=== PATIENT | male | born 1950 | race Caucasian/White ===

== ENCOUNTER 2016-12-25 09:12 | Emergency (ER) | payer BC, OTHER ==
[~2016-12-25] VITALS: Ht 172.7 cm; Wt 83.9 kg
[~2016-12-25 09:12] MED LIST: ASPI1TAB6 PO; ATOR1TAB19 PO; LEVO25TA5 PO; LISI-538 PO; METF500T PO; NITR0.4D6 SL; PROT1TAB2 PO; SUCR1TA PO; TORS20TA2 PO
[2016-12-25] MEDS ORDERED: VITA200016 PO (09:45)
[2016-12-25] MEDS ORDERED: FLAG500T PO (09:51)
[2016-12-25] MEDS ORDERED: CIPR500T19 PO (09:51)
[2016-12-25 10:35] LABS: BASO % 0.3 % (0.0-1.0); EOS % 0.4 % (0.0-3.0); LARGE UNSTAINED CELL # 0.1 K/mm3 (0.0-0.4); LYMPH # 0.7 K/mm3 (1.5-4.5); LYMPH % 5.1 % (24.0-44.0); MEAN CORPUSCULAR HEMOGLOBIN 31.9 pg (27.0-33.0); MEAN CORPUSCULAR HGB CONC 35.9 g/dl (32.0-36.5); MEAN CORPUSCULAR VOLUME 88.7 fl (80.0-96.0); MONO % 8.6 % (0.0-5.0); NEUTROPHILS # 9.4 K/mm3 (1.8-7.7); NEUTROPHILS % 84.6 % (36.0-66.0); PLATELET COUNT, AUTOMATED 264 k/mm3 (150-450); RED CELL DISTRIBUTION WIDTH 12.5 % (11.5-14.5); WHITE BLOOD COUNT 11.1 K/mm3 (4.0-10.0)
[2016-12-25 10:43] LABS: CALCIUM LEVEL 8.6 MG/DL (8.8-10.2); CREATININE FOR GFR 1.68 MG/DL (0.70-1.30); FREE T4 1.5 NG/DL (0.76-1.46); POTASSIUM SERUM 3.6 MEQ/L (3.5-5.1)
--- NOTE | 2016-12-25 10:55 | REP ---
CT Head without contrast HISTORY: Syncope COMPARISON: 12/28/2006 Areas of decreased attenuation are present in the periventricular white matter. This represents small-vessel ischemic disease. There is no intraparenchymal hemorrhage, acute infarct, mass or midline shift. The ventricular system is normal in appearance. There is no extra cerebral collection. There is no fracture. The visualized sinuses are clear. IMPRESSION: Small vessel ischemic disease. Signed by Ej Crespo MD 12/25/2016 10:47 A
[2016-12-25] MEDS ORDERED: NS 500 ML IV ONE (11:15)
[2016-12-25] MEDS ORDERED: GASTROGRAFIN SOLUTION 30ML (Q9963) As Ordered ONE (11:18)
[2016-12-25] MEDS ORDERED: GASTROGRAFIN SOLUTION 30ML (Q9963) PO ONE ×2 (11:20→11:50)
--- NOTE | 2016-12-25 12:38 | REP ---
CT CERVICAL SPINE WITHOUT CONTRAST: HISTORY: Syncope. There is no acute fracture or subluxation. A disc bulge is present at the C3-4 level. Disc bulges with associated osteophyte formation are present at the C5-6 and C6-7 levels. There is minimal to mild narrowing of the spinal canal. Uncinate process and/or facet hypertrophy are present at the C2-3 through C6-7 levels. These findings produce minimal to moderate narrowing of the neural foramina. There is fusion of the C5 through C7 vertebral bodies. The C3-4, C4-5 and C7-T1 intervertebral discs are decreased in height consistent with disc degeneration. There is loss of the normal lordotic curve. IMPRESSION: 1. There is no acute fracture or subluxation. 2. There is cervical spondylosis at the C2-3 through C7-T1 levels. Signed by Ej Crespo MD 12/25/2016 12:57 P
--- NOTE | 2016-12-25 13:18 | REP ---
CT ABDOMEN AND PELVIS WITHOUT CONTRAST: CT abdomen and pelvis performed without IV contrast but with oral contrast. Sagittal and coronal reconstruction images are performed. The visualized lung bases demonstrate no infiltrate. The liver, gallbladder, spleen, adrenals, pancreas and kidneys are grossly unremarkable in appearance. There is no renal, ureteral or bladder calculus. There is no hydroureteronephrosis. There are mild atherosclerotic calcifications of the abdominal aorta without aneurysm. There is no adenopathy. There is no free air or free fluid. There is no bowel wall thickening. There is no evidence of bowel obstruction. No pelvic mass is seen. IMPRESSION: Essentially negative CT abdomen and pelvis without IV but with oral contrast. Signed by Shan Du MD 12/25/2016 03:55 P
[2016-12-25] MEDS ORDERED: LOMO2.5T PO ×3 (16:48→16:59)
[2016-12-25 17:20] VITALS: BP 120/66
--- NOTE | 2016-12-27 12:08 | ECGEPIP ---
Stationary ECG Study [facility] - ED Test Date: 2016-12-25 Pat Name: GLORY CHACON Department: Room: - Gender: M Chairman: mecca : 1950 Requested By: James Porter Order Number: [id number] Reading MD: Trisha Lehman Measurements Intervals [place] Rate: 73 P: 34 [place]: 179 QRS: 4 QRSD: 101 T: 10 QT: 398 QTc: 440 Interpretive Statements SINUS RHYTHM ?PRIOR INFERIOR INFARCT NSTTW ABNORMALITY Electronically Signed On 12-27-2016 12:08:01 EST by Trisha Lehman
== END 2016-12-25 17:32 | disposition home or self-care (01) ==
LOC: M ED 10:35
DX: R55 Syncope and collapse (principal); A09 Infectious gastroenteritis and colitis, unspecified; I25.10 Atherosclerotic heart disease of native coronary artery without angina pectoris; I10 Essential (primary) hypertension; N39.3 Stress incontinence (female) (male); I20.9 Angina pectoris, unspecified; E78.00 Pure hypercholesterolemia, unspecified; E03.9 Hypothyroidism, unspecified; Z87.442 Personal history of urinary calculi; Z85.46 Personal history of malignant neoplasm of prostate
CPT/HCPCS: 36415; 70450; 72125; 74176; 80048; 84439; 84443; 85025; 87507; 93005; 93041; 94760; 99285; Q9963

== ENCOUNTER 2016-12-27 22:42 | Emergency (ER) | payer BC, OTHER ==
[~2016-12-27] VITALS: Ht 172.7 cm; Wt 83.9 kg
[~2016-12-27 22:42] MED LIST changes: +CIPR500T19 PO; +FLAG500T PO; +LOMO2.5T PO; +VITA200016 PO
[2016-12-28] MEDS ORDERED: ALBUTEROL SULFATE 2.5 MG/0.5 ML INH NEB SOLN NEB ONE (00:15)
[2016-12-28] MEDS ORDERED: [UNRECOGNIZED DRUG - CODE] PO (01:24)
[2016-12-28] MEDS ORDERED: guaiFENesin/CODEINE SYRUP 5 ML UDC PO ONE (01:30)
[2016-12-28 01:45] VITALS: BP 115/66
--- NOTE | 2016-12-28 10:26 | REP ---
CHEST, TWO VIEWS: Two views of the chest are performed. Comparison 11/27/2011. There is minor bibasilar interstitial fibrosis without evidence of acute infiltrate. Heart is normal in size. There is mild calcification of the thoracic aorta. Mediastinal silhouette is unchanged. The visualized osseous structures are intact. IMPRESSION: No acute pulmonary disease. Signed by Shan Du MD 12/28/2016 01:56 P
== END 2016-12-28 02:04 | disposition home or self-care (01) ==
LOC: M ED 23:46
DX: J06.9 Acute upper respiratory infection, unspecified (principal); N40.0 Benign prostatic hyperplasia without lower urinary tract symptoms; Z87.442 Personal history of urinary calculi; Z79.899 Other long term (current) drug therapy; Z85.46 Personal history of malignant neoplasm of prostate; E11.9 Type 2 diabetes mellitus without complications; E03.9 Hypothyroidism, unspecified; M54.9 Dorsalgia, unspecified

== ENCOUNTER 2017-07-15 12:20 | Outpatient (CLI) | payer BC, OTHER ==
[~2017-07-15] VITALS: Ht 172.7 cm; Wt 86.2 kg
[~2017-07-15 12:20] MED LIST changes: +ASPI1TAB PO; +GLIP1TAB49 PO; +LIDOCAINE 2% INJ 100 MG/5 ML SDV (FOR ANES.) As Ordered ONE; -METF500T PO; +METF500T13 PO; +OMEG12002 PO; +PROPOFOL 200 MG/20 ML VIAL As Ordered ONE; +VITATAB11 PO; +[UNRECOGNIZED DRUG - CODE] PO
[2017-07-15] MEDS ORDERED: NS 1,000 ML IV SCH (12:30)
--- NOTE | 2017-07-15 13:26 | ROOR ---
Patient Name: Afshin Gaines Procedure Date: 07/15/2017 1:01 PM Date of : 1950 Age: 66 Room: [facility] Gender: Male Note Status: Finalized Procedure: Total Colonoscopy to Cecum Indications: Screening for colorectal malignant neoplasm, Last colonoscopy: 2002 Providers: Timmy Haile MD Referring MD: LINDA WASHBURN MD Requesting Provider: Medicines: Monitored Anesthesia Care Complications: No immediate complications. Procedure: Pre-Anesthesia Assessment: - The heart rate, respiratory rate, oxygen saturations, blood pressure, adequacy of pulmonary ventilation, and response to care were monitored throughout the procedure. The Colonoscope was introduced through the anus and advanced to the cecum, identified by appendiceal orifice and ileocecal valve. The colonoscopy was performed without difficulty. The patient tolerated the procedure well. The quality of the bowel preparation was excellent. Findings: The perianal and digital rectal examinations were normal. Non-bleeding internal hemorrhoids were found during retroflexion. The hemorrhoids were small and Grade I (internal hemorrhoids that do not prolapse). No other significant abnormalities were identified in a careful examination of the remainder of the colon. The exam was otherwise without abnormality on direct and retroflexion views. Impression: - Non-bleeding internal hemorrhoids. - The examination was otherwise normal on direct and retroflexion views. - No specimens collected. - The exam was otherwise normal to the cecum. Recommendation: - Patient has a contact number available for emergencies. The signs and symptoms of potential delayed complications were discussed with the patient. Return to normal activities tomorrow. Written discharge instructions were provided to the patient. - High fiber diet. - Discharge patient to home. - Continue present medications. - Repeat colonoscopy in 10 years for screening purposes. - Return to referring physician. - The findings and recommendations were discussed with the patient's family. Timmy Haile MD Timmy Haile MD 07/15/2017 1:20:21 PM This report has been signed electronically. Number of Addenda: 0 Note Initiated On: 07/15/2017 1:01 PM Estimated Blood Loss: Estimated blood loss: none.
[2017-07-15 13:48] VITALS: BP 127/73
== END 2017-07-15 13:50 | disposition home or self-care (01) ==
LOC: M OPP 12:20
PROVIDERS: ATTEND Internal Medicine Gastroenterology
DX: Z12.11 Encounter for screening for malignant neoplasm of colon (principal); K64.0 First degree hemorrhoids; I10 Essential (primary) hypertension; E78.5 Hyperlipidemia, unspecified; R00.8 Other abnormalities of heart beat; E11.9 Type 2 diabetes mellitus without complications; E03.9 Hypothyroidism, unspecified; G47.30 Sleep apnea, unspecified; R06.83 Snoring; Z87.442 Personal history of urinary calculi; Z85.46 Personal history of malignant neoplasm of prostate; Z79.82 Long term (current) use of aspirin; Z79.899 Other long term (current) drug therapy; Z79.84 Long term (current) use of oral hypoglycemic drugs; Z80.42 Family history of malignant neoplasm of prostate; Z80.3 Family history of malignant neoplasm of breast

== ENCOUNTER → 2017-08-06 | Outpatient (CLI) | payer BC, OTHER ==
[~2017-08-06] MED LIST changes: -LIDOCAINE 2% INJ 100 MG/5 ML SDV (FOR ANES.) As Ordered ONE; -PROPOFOL 200 MG/20 ML VIAL As Ordered ONE
--- NOTE | 2017-08-11 18:58 | SLEEPHOME ---
DATE OF STUDY: 08/06/2017 ORDERED BY: Korina Echavarria NP Diagnostic home sleep testing was performed due to concern for the obstructive sleep apnea syndrome in this patient with a history of excessive somnolence and nonrestorative sleep, compounded by comorbidities of hypothyroidism, diabetes and hypertension. For testing, a NOX-T3 respiratory monitoring device was used. Continuous record was made of pulse, oxygen saturation, air flow, chest and abdominal strain, and body position. 9 hours and 59 minutes of data were reviewed. There were 8 hours and 47 minutes marked as time in bed. During the interval marked time in bed, there were 116 respiratory events identified of 10 seconds in duration or greater for a respiratory event index of 13.2. The events were primarily obstructive. Baseline pulse rate 66 beats per minute. Pulse rate ranged 51 to 98. Baseline saturation 93%. Saturations were seen as low as 79% surrounding respiratory events. Testing was performed in both the supine and non-supine positions. IMPRESSION: Abnormal home sleep testing with repetitive respiratory events and oxygen desaturation to 79%, with a respiratory event index of 13.2, is consistent with the obstructive sleep apnea syndrome. RECOMMENDATION: The patient should be encouraged to return to the sleep disorder center for pressure therapy titration.
== END ==
LOC: M SLEEP HO 11:42
PROVIDERS: ATTEND Nurse Practitioner Adult Health
DX: G47.30 Sleep apnea, unspecified (principal)

== ENCOUNTER → 2017-11-25 | Outpatient (CLI) | payer MEDICARE, BC, OTHER | LOC: M SLEEP 19:38 | DX: G47.33 Obstructive sleep apnea (adult) (pediatric) (principal) | CPT/HCPCS: 95811 ==

== ENCOUNTER → 2018-01-26 | Outpatient (REF) | payer BC, MEDICARE, OTHER ==
[2018-01-26 11:21] LABS: VITAMIN B12 LEVEL 1011 PG/ML
[2018-01-26 11:22] LABS: FOLATE > 24.0 NG/ML
[2018-01-26 11:26] LABS: FREE T4 1.09 NG/DL (0.76-1.46); TOTAL PROTEIN 7.4 GM/DL (6.4-8.2)
[2018-01-26 11:28] LABS: ERYTHROCYTE SEDIMENTATION RATE 9 mm/hr (0-20)
[2018-01-26 11:36] LABS: ESTIMATED AVERAGE GLUCOSE 160 MG/DL (60-110); HEMOGLOBIN A1c 7.2 %
[2018-01-26 11:37] LABS: DRVV SCREEN 41.3 SEC
[2018-01-27 11:04] LABS: ALBUMIN 4.23 GM/DL (3.29-5.55); ALBUMIN % 57.1 % (55.8-66.1); ALPHA-1-GLOBULIN % 3.5 % (2.9-4.9); ALPHA-1-GLOBULINS 0.26 GM/DL (0.17-0.41); ALPHA-2-GLOBULINS 0.67 GM/DL (0.42-0.99); BETA-1-GLOBULINS 0.49 GM/DL (0.28-0.60); BETA-1-GLOBULINS % 6.6 % (4.7-7.2); BETA-2-GLOBULINS 0.47 GM/DL (0.19-0.55); BETA-2-GLOBULINS % 6.4 % (3.2-6.5); GAMMA GLOBULIN % 17.4 % (11.1-18.8); GAMMA GLOBULINS 1.29 GM/DL (0.65-1.58)
[2018-01-27 14:13] LABS: ANTINUCLEAR ANTIBODIES DIRECT Negative (Negative)
[2018-02-01 00:06] LABS: VITAMIN B1 LEVEL WHOLE BLOOD 184.7 nmol/L (66.5-200.0)
[2018-02-01 00:06] LABS: VITAMIN B6,PYRIDOXAL PHOSPHATE 9.6 ug/L (5.3-46.7)
== END ==
LOC: M LABNEURO 09:57
DX: G62.9 Polyneuropathy, unspecified (principal); H53.2 Diplopia
CPT/HCPCS: 82746

== ENCOUNTER → 2018-03-10 | Outpatient (REF) | payer BC, MEDICARE, OTHER ==
[2018-03-13 00:06] LABS: CARDIOLIPIN IGA ANTIBODY <9 APL U/mL (0-11); CARDIOLIPIN IGG ANTIBODY <9 GPL U/mL (0-14); CARDIOLIPIN IGM ANTIBODY 11 MPL U/mL (0-12); PROTEIN C FUNCTIONAL ACTIVITY 107 % (73-180); PROTEIN S FUNCTIONAL ACTIVITY 92 % (63-140)
[2018-03-13 00:06] LABS: ANTI THROMBIN 3 FUNCT ACTIVITY 102 % (75-135)
== END ==
LOC: M LABNEURO 11:27
DX: M25.512 Pain in left shoulder (principal); I67.9 Cerebrovascular disease, unspecified
CPT/HCPCS: 86147

== ENCOUNTER 2020-04-30 13:11 | Emergency (ER) | payer MEDICARE, BC, OTHER ==
[~2020-04-30] VITALS: Ht 172.7 cm; Wt 85.3 kg
[~2020-04-30 13:11] MED LIST changes: -ASPI1TAB PO; +ASPI81TA26 PO; -GLIP1TAB49 PO; +GLIP5TAB20 PO
[2020-04-30] MEDS ORDERED: METH1TAB40 PO (14:47)
[2020-04-30 14:57] VITALS: BP 132/67
--- NOTE | 2020-04-30 17:10 | REP ---
REASON FOR EXAM: Midline pain after trauma. COMPARISON: 12/22/2006. Marginal osteophytes/partial syndesmophyte formation seen at multiple levels bilaterally on the prior exam have all increased. The pedicles are again seen to be intact bilaterally. Vertebral body height and alignment is essentially unchanged and again seen to be within normal limits. Once again, there is mild to moderate disc space narrowing at every level, and particularly at the L2-3 level, status quo. No spondylolysis or spondylolisthesis has developed. IMPRESSION: Chronic changes, as described above. Electronically Signed by Peterson Kim DO 04/30/2020 05:19 P
== END 2020-04-30 14:58 | disposition home or self-care (01) ==
LOC: M ED 13:11
DX: S33.5XXA Sprain of ligaments of lumbar spine, initial encounter (principal); V93.35XA Fall on board canoe or kayak, initial encounter; Y92.828 Other wilderness area as the place of occurrence of the external cause; Y93.16 Activity, rowing, canoeing, kayaking, rafting and tubing; Y99.8 Other external cause status; E78.00 Pure hypercholesterolemia, unspecified; I10 Essential (primary) hypertension; E03.9 Hypothyroidism, unspecified; E11.9 Type 2 diabetes mellitus without complications; Z79.84 Long term (current) use of oral hypoglycemic drugs; Z79.899 Other long term (current) drug therapy

== ENCOUNTER → 2020-10-01 | Outpatient (CLI) | payer SELFPAY ==
[~2020-10-01] MED LIST changes: +METH1TAB40 PO
== END ==
LOC: M LABSMTC 14:07
PROVIDERS: ATTEND Pediatrics
DX: Z20.828 Contact with and (suspected) exposure to other viral communicable diseases (principal)

== ENCOUNTER → 2021-10-03 | Outpatient (REF) ==
[~2021-10-03] MED LIST changes: -LISI-538 PO; +LISI20TA33 PO; +METH-1164 PO; -METH1TAB40 PO
== END ==
LOC: M LABSMTC 12:48
PROVIDERS: ATTEND Pediatrics
DX: Z11.52 Encounter for screening for COVID-19 (principal)

== ENCOUNTER → 2022-02-20 | Outpatient (REF) | payer MEDICARE, BC, OTHER ==
[2022-02-20 13:57] LABS: HIV 1&2 SCREEN CENTAUR NEGATIVE (NEGATIVE); VITAMIN B12 LEVEL 853 PG/ML (247-911)
== END ==
LOC: M LAB REF 12:24
PROVIDERS: ATTEND Internal Medicine
DX: G31.84 Mild cognitive impairment of uncertain or unknown etiology (principal)

== ENCOUNTER → 2023-04-16 | Outpatient (REF) | payer MEDICARE, BC, OTHER ==
[2023-04-17 08:11] LABS: LDL DIRECT 43 mg/dL (0-99)
== END ==
LOC: M LAB REF 12:39
PROVIDERS: ATTEND Internal Medicine
DX: E78.00 Pure hypercholesterolemia, unspecified (principal)

== ENCOUNTER → 2023-10-29 | Outpatient (CLI) | payer MEDICARE, BC, OTHER | LOC: M WUC 13:31 | PROVIDERS: ATTEND Internal Medicine | DX: M51.36 Other intervertebral disc degeneration, lumbar region (principal) ==

== ENCOUNTER → 2024-02-09 | Outpatient (CLI) | payer MEDICARE, BC, OTHER | LOC: M PLAIMG 08:25 | PROVIDERS: ATTEND Internal Medicine | DX: R01.1 Cardiac murmur, unspecified (principal) ==